=== PATIENT | female | born 1945 | race Caucasian/White ===

== ENCOUNTER → 2018-02-22 08:30 | Outpatient (CLI) | payer MEDICARE, SELFPAY ==
--- NOTE | 2018-02-22 08:32 | BI_ITS ---
MAMMOGRAPHY - UNILATERAL SCREENING: RIGHT BREAST REASON FOR EXAM: Female, 72 years old. Routine annual screening examination (unilateral). PERTINENT HISTORY: Personal history of breast cancer. Prior left mastectomy and chemotherapy. TECHNIQUE: Digital unilateral breast gianluca (3D mammographic acquisition) in the CC and MLO projections. 2-D mediolateral oblique (MLO) and craniocaudad (CC) views of both breasts were obtained. CAD: Full Field Digital Mammography with Computer Added Detection was performed. COMPARISON: Comparison is made with prior study dated February 19, 2017 and January 28, 2016. FINDINGS: Breast Composition: There are scattered areas of fibroglandular density. There are no dominant masses or suspicious calcifications. No other significant abnormalities are identified. There has been no significant change since the prior study. BI/UNILAT RT SCRN W/CAD IMPRESSION: Stable unilateral screening mammogram. Yearly follow-up mammogram recommended. (A) ASSESSMENT CATEGORY: BIRADS Category 1: Negative. A letter regarding these results will be sent to the patient by the facility within 30 days. Approximately 10% of breast cancers are not detected by mammography. A normal mammogram should not delay biopsy of a clinically suspicious abnormality. [id number] Electronically Signed: Jesus Faria MD at 10:42 EST Tel [phone], Service support ,
== END ==
PROVIDERS: Family Provider Preventive Medicine Occupational Medicine; PCP Preventive Medicine Occupational Medicine; Visit Provider Nurse Practitioner Women's Health
DX: Z12.31 Encounter for screening mammogram for malignant neoplasm of breast (principal); Z85.3 Personal history of malignant neoplasm of breast; Z90.12 Acquired absence of left breast and nipple
CPT/HCPCS: 77061; 77067; G0279

== ENCOUNTER → 2018-09-16 11:19 | Outpatient (CLI) | payer MEDICARE, SELFPAY ==
[2018-02-03 08:38] VITALS: BMI 35.2
[2018-09-16 12:48] LABS: Albumin, Serum 3.7 g/dL (3.2-5.0); BUN 34 mg/dL (7-18); BUN/Creat Ratio 16.1 RATIO (10-20); Calcium,Total 9.4 mg/dL (8.5-10.1); Chloride 109 mmol/L (98-107); Creatinine, Serum 2.11 mg/dL (0.55-1.02); EST Glomerular Filtration Rate 24 mL/min (>60); Est Glom Filt Rate - Afr Amer 30 mL/min (>60); Glucose 282 mg/dL (74-106); Phosphorus 3.3 mg/dL (2.5-4.9); Potassium 4.9 mmol/L (3.5-5.1); Sodium Level 139 mmol/L (136-145)
== END ==
PROVIDERS: Family Provider Preventive Medicine Occupational Medicine; PCP Preventive Medicine Occupational Medicine; Visit Provider Internal Medicine Nephrology
DX: N18.4 Chronic kidney disease, stage 4 (severe) (principal); N25.81 Secondary hyperparathyroidism of renal origin
CPT/HCPCS: 36415; 80069; 83970

== ENCOUNTER → 2019-02-24 08:07 | Outpatient (CLI) | payer MEDICARE, SELFPAY ==
[2019-02-07 08:34] VITALS: BMI 35.2
--- NOTE | 2019-02-24 08:09 | BI_ITS ---
MAMMOGRAPHY - UNILATERAL SCREENING: RIGHT BREAST REASON FOR EXAM: Female, 73 years old. Routine annual screening examination (unilateral). PERTINENT HISTORY: Personal history of breast cancer. Prior left mastectomy with chemotherapy. Sister with breast cancer. Mother with breast cancer. TECHNIQUE: Digital unilateral breast jessica (3D mammographic acquisition) in the CC and MLO projections. 2-D mediolateral oblique (MLO) and craniocaudad (CC) views of both breasts were obtained. CAD: Full Field Digital Mammography with Computer Added Detection was performed. COMPARISON: Comparison is made with prior examination dated February 22, 2018 and February 19, 2017. FINDINGS: Breast Composition: There are scattered areas of fibroglandular density. There are no dominant masses or suspicious calcifications. No other significant abnormalities are identified. There has been no significant change since the prior study. BI/SCREEN MAMM (CAD) W/JESSICA UNI R IMPRESSION: Stable unilateral screening mammogram. Yearly follow-up mammogram recommended. (A) ASSESSMENT CATEGORY: BIRADS Category 1: Negative. A letter regarding these results will be sent to the patient by the facility within 30 days. Approximately 10% of breast cancers are not detected by mammography. A normal mammogram should not delay biopsy of a clinically suspicious abnormality. [id number] Electronically Signed: Jesus Faria, at 10:05 EST , Service support ,
== END ==
PROVIDERS: Family Provider Preventive Medicine Occupational Medicine; PCP Preventive Medicine Occupational Medicine; Referring Provider Nurse Practitioner Women's Health; Visit Provider Nurse Practitioner Women's Health
DX: Z12.31 Encounter for screening mammogram for malignant neoplasm of breast (principal); Z80.3 Family history of malignant neoplasm of breast; Z85.3 Personal history of malignant neoplasm of breast; Z90.12 Acquired absence of left breast and nipple
CPT/HCPCS: 77061; 77067; G0279

== ENCOUNTER → 2020-03-06 08:07 | Outpatient (CLI) | payer MEDICARE, SELFPAY ==
[2020-02-09 08:08] VITALS: BMI 34.2
--- NOTE | 2020-03-06 08:09 | BI_ITS ---
MAMMOGRAPHY - BILATERAL SCREENING REASON FOR EXAM: Female, 74 years old. Routine annual screening examination. PERTINENT HISTORY: Personal history of breast cancer. Sister with breast cancer. Mother with breast cancer. Prior left mastectomy. TECHNIQUE: Digital bilateral breast jessica (3D mammographic acquisition) in the CC and MLO projections. 2-D mediolateral oblique (MLO) and craniocaudad (CC) views of both breasts were obtained. CAD: Full Field Digital Mammography with Computer Added Detection was performed. COMPARISON: Comparison is made with prior study dated 02/24/2019 and 02/22/2018. FINDINGS: Breast Composition: There are scattered areas of fibroglandular density. There are no dominant masses or suspicious calcifications. No other significant abnormalities are identified. There has been no significant change since the prior study. BI/SCREEN MAMM (CAD) W/JESSICA BILAT IMPRESSION: Stable bilateral screening mammogram. Yearly follow-up mammogram recommended. (A) ASSESSMENT CATEGORY: BIRADS Category 2: Benign. A letter regarding these results will be sent to the patient by the facility within 30 days. Approximately 10% of breast cancers are not detected by mammography. A normal mammogram should not delay biopsy of a clinically suspicious abnormality. [id number] Electronically Signed: Jesus Faria, at 10:17 EST , Service support ,
== END ==
PROVIDERS: PCP Preventive Medicine Occupational Medicine; Referring Provider Nurse Practitioner Women's Health; Visit Provider Nurse Practitioner Women's Health
DX: Z12.31 Encounter for screening mammogram for malignant neoplasm of breast (principal); Z80.3 Family history of malignant neoplasm of breast; Z90.12 Acquired absence of left breast and nipple; Z85.3 Personal history of malignant neoplasm of breast
CPT/HCPCS: 77063; 77067

== ENCOUNTER → 2020-07-31 12:14 | Outpatient (CLI) | payer MEDICARE, SELFPAY ==
[2020-02-09 08:08] VITALS: BMI 34.2
[2020-07-31 12:58] LABS: Microalbumin:Creatinine Ratio 10.2 mg/g CRE (<30 mg/g CRE)
== END ==
PROVIDERS: PCP Preventive Medicine Occupational Medicine; Visit Provider Internal Medicine Nephrology
DX: E11.22 Type 2 diabetes mellitus with diabetic chronic kidney disease (principal)
CPT/HCPCS: 82043; 82570

== ENCOUNTER → 2021-03-07 10:21 | Outpatient (CLI) | payer MEDICARE, SELFPAY ==
[2020-02-09 08:08] VITALS: BMI 34.2
--- NOTE | 2021-03-07 10:38 | BI_ITS ---
MAMMOGRAPHY - UNILATERAL SCREENING: RIGHT BREAST REASON FOR EXAM: Female, 75 years old. Routine annual screening examination (unilateral). PERTINENT HISTORY: Personal history of breast cancer. Prior left mastectomy. Sister with breast cancer. Mother with breast cancer. TECHNIQUE: Digital unilateral breast jessica (3D mammographic acquisition) in the CC and MLO projections. 2-D mediolateral oblique (MLO) and craniocaudad (CC) views of both breasts were obtained. CAD: Full Field Digital Mammography with Computer Added Detection was performed. COMPARISON: Comparison is made with prior study dated 03/06/2020 and 02/24/2019. FINDINGS: Breast Composition: There are scattered areas of fibroglandular density. There are no dominant masses or suspicious calcifications. No other significant abnormalities are identified. There has been no significant change since the prior study. BI/SCREEN MAMM (CAD) W/JESSICA UNI R IMPRESSION: Stable unilateral screening mammogram. Yearly follow-up mammogram recommended. (A) ASSESSMENT CATEGORY: BIRADS Category 1: Negative. A letter regarding these results will be sent to the patient by the facility within 30 days. Approximately 10% of breast cancers are not detected by mammography. A normal mammogram should not delay biopsy of a clinically suspicious abnormality. [id number] Electronically Signed: Jesus Faria MD at 11:03 EST , Service support ,
== END ==
PROVIDERS: PCP Preventive Medicine Occupational Medicine; Referring Provider Nurse Practitioner Women's Health; Visit Provider Nurse Practitioner Women's Health
DX: Z12.31 Encounter for screening mammogram for malignant neoplasm of breast (principal)
CPT/HCPCS: 77063; 77067

== ENCOUNTER → 2022-03-10 | Outpatient (CLI) | payer MEDICARE, SELFPAY ==
--- NOTE | 2022-03-10 13:25 | BI_ITS ---
MAMMOGRAPHY - UNILATERAL SCREENING: RIGHT BREAST REASON FOR EXAM: Female, 76 years old. Routine annual screening examination (unilateral). PERTINENT HISTORY: Personal history of breast cancer. Prior left breast mastectomy. Sister with breast cancer. Mother with breast cancer. TECHNIQUE: Digital unilateral breast jessica (3D mammographic acquisition) in the CC and MLO projections. 2-D mediolateral oblique (MLO) and craniocaudad (CC) views of both breasts were obtained. CAD: Full Field Digital Mammography with Computer Added Detection was performed. COMPARISON: Right breast mammogram from 03/07/2021, 03/06/2020. FINDINGS: Breast Composition: There are scattered areas of fibroglandular density. There are no dominant masses or suspicious calcifications. No other significant abnormalities are identified. There has been no significant change since the prior study. BI/SCREEN MAMM (CAD) W/JESSICA UNI R IMPRESSION: Stable unilateral screening mammogram. Yearly follow-up mammogram recommended. (A) ASSESSMENT CATEGORY: BIRADS Category 1: Negative. A letter regarding these results will be sent to the patient by the facility within 30 days. Approximately 10% of breast cancers are not detected by mammography. A normal mammogram should not delay biopsy of a clinically suspicious abnormality. Electronically Signed: Solitario Kaplan, at 11:56 EST ,
== END | disposition home or self-care (01) ==
LOC: OPBI 13:24
PROVIDERS: PCP Preventive Medicine Occupational Medicine; Visit Provider Nurse Practitioner Women's Health
DX: Z12.31 Encounter for screening mammogram for malignant neoplasm of breast (principal); Z80.3 Family history of malignant neoplasm of breast; Z90.12 Acquired absence of left breast and nipple
CPT/HCPCS: 77063; 77067

== ENCOUNTER → 2022-04-01 | Outpatient (CLI) | payer MEDICARE, SELFPAY ==
--- NOTE | 2022-04-01 09:04 | BD_ITS ---
STUDY: DUAL ENERGY X-RAY ABSORPTIOMETRY / DXA REASON FOR EXAM: Female, 76 years old. Postmenopausal TECHNIQUE: Bone Mineral Density (BMD) measurements of lumbar spine and bilateral hips were obtained. COMPARISON: Comparison is made with prior study dated 02/19/2017. FINDINGS: Lumbar Spine (L1-L4): g/cm2 (0.819) / T-score (-2.1) / Z-score (0.5) Findings are suggestive of osteopenia with a high fracture risk. Left Femur Total: g/cm2 (0.728) / T-score (-1.8) / Z-score (0.2) Left Femoral Neck: g/cm2 (0.551) / T-score (-2.7) / Z-score (-0.5) Right Femur Total: g/cm2 (0.709) / T-score (-1.9) / Z-score (0.0) Right Femoral Neck: g/cm2 (0.58) / T-score (-2.4) / Z-score (-0.2) The T-Scores on the most recent prior examination were: Lumbar Spine (L1-L4): There has been worsening of bone density since the previous examination. Left Femur Total: which represents a worsening of 9.5%. Right Femur Total: which represents a worsening of 7.9%. BD/Dexa Bone Density Study IMPRESSION: The patient is considered osteoporotic as outlined below according to World Jorge Organization (WHO) criteria with a high fracture risk. There has been worsening of bone density since the previous examination. Reference Information: The T-score is the number of standard deviations above or below the standard which is normal for young adults at their peak bone mineral density. The World Health Organization (WHO) interprets the T-scores as follows: Above -1 Normal bone density Between -1 and -2.5 Osteopenia Equal to / or below -2.5 Osteoporosis As a practical clinical guideline, osteopenia may be graded as follows: Mild -1 through -1.5 Moderate -1.6 through -2.0 Severe -2.1 through -2.4 The Z-score is the number of standard deviations above or below age-matched controls. A Z-score of less than -1.5 would be considered abnormal. References: 1. NIH Osteoporosis and Related Bone Diseases www osteo.org 2. International Society for Clinical Densitometry www iscd.org 3. National Osteoporosis Foundation www nof.org Electronically Signed: Jesus Faria MD at 11:18 EST ,
== END | disposition home or self-care (01) ==
LOC: OPBD 08:55
PROVIDERS: PCP Preventive Medicine Occupational Medicine; Referring Provider Nurse Practitioner Women's Health; Visit Provider Nurse Practitioner Women's Health
DX: Z78.0 Asymptomatic menopausal state (principal); M81.0 Age-related osteoporosis without current pathological fracture; M85.80 Other specified disorders of bone density and structure, unspecified site
CPT/HCPCS: 77080

== ENCOUNTER → 2022-06-03 | Outpatient (CLI) | payer MEDICARE, SELFPAY ==
[2022-06-03 11:59] LABS: Hematocrit 43.2 % (37-47); Hemoglobin 13.6 g/dL (12.0-15.0); Mean Corp Hgb Conc 31.5 g/dL (32-36); Mean Corpuscular Hgb 29.2 pg (27.0-32.0); Mean Corpuscular Volume 92.7 fL (81-99); Mean Platelet Vol. 11.1 fl (6.2-12.0); Platelet Count 258 K/mm3 (150-450); RBC Distribution Width CV 13.6 % (11.6-14.6); RBC Distribution Width SD 46.3 fl (35.1-43.9); Red Blood Count 4.66 M/mm3 (4.2-5.4); White Blood Count 6.3 K/mm3 (4.4-11.0)
[2022-06-03 12:16] LABS: PTHIN 112.8 pg/mL (18.4-80.1)
[2022-06-03 12:18] LABS: Albumin, Serum 3.6 g/dL (3.2-5.0); BUN 32 mg/dL (7-18); BUN/Creat Ratio 19.8 RATIO (10-20); Calcium,Total 9.4 mg/dL (8.5-10.1); Chloride 110 mmol/L (98-107); Creatinine, Serum 1.62 mg/dL (0.55-1.02); EST Glomerular Filtration Rate 33 mL/min (>60); Est Glom Filt Rate - Afr Amer 40 mL/min (>60); Glucose 162 mg/dL (74-106); Phosphorus 3.3 mg/dL (2.5-4.9); Potassium 4.6 mmol/L (3.5-5.1); Sodium Level 142 mmol/L (136-145)
== END | disposition home or self-care (01) ==
LOC: LAB 11:25
PROVIDERS: PCP Preventive Medicine Occupational Medicine; Referring Provider Internal Medicine Nephrology; Visit Provider Internal Medicine Nephrology
DX: N18.4 Chronic kidney disease, stage 4 (severe) (principal); N25.81 Secondary hyperparathyroidism of renal origin
CPT/HCPCS: 36415; 80069; 83970; 85027

== ENCOUNTER → 2022-12-30 | Outpatient (CLI) | payer MEDICARE, SELFPAY ==
[2022-12-30 10:27] LABS: Protein, Urine (Random) < 6.0 mg/dL (<11.9); Protein:Creat Ratio 60 mg/g CRE (0-200)
[2022-12-30 10:44] LABS: PTHIN 98.6 pg/mL (18.4-80.1)
[2022-12-30 10:57] LABS: Albumin, Serum 3.4 g/dL (3.2-5.0); BUN 26 mg/dL (7-18); BUN/Creat Ratio 15.6 RATIO (10-20); Calcium,Total 9.2 mg/dL (8.5-10.1); Chloride 111 mmol/L (98-107); Cholesterol 102 mg/dL (200); Creatinine, Serum 1.67 mg/dL (0.55-1.02); EST Glomerular Filtration Rate 32 mL/min (>60); Est Glom Filt Rate - Afr Amer 38 mL/min (>60); Glucose 147 mg/dL (74-106); High Density Lipoprotein 37 mg/dL; Phosphorus 3.3 mg/dL (2.5-4.9); Potassium 4.6 mmol/L (3.5-5.1); Sodium Level 140 mmol/L (136-145); Triglycerides 103 mg/dL; Very Low Density Lipoprotein 21 mg/dL (5-40)
== END | disposition home or self-care (01) ==
LOC: LAB 09:25
PROVIDERS: PCP Preventive Medicine Occupational Medicine; Referring Provider Internal Medicine Nephrology; Visit Provider Internal Medicine Nephrology
DX: N18.4 Chronic kidney disease, stage 4 (severe) (principal); E11.22 Type 2 diabetes mellitus with diabetic chronic kidney disease; N25.81 Secondary hyperparathyroidism of renal origin; E78.5 Hyperlipidemia, unspecified
CPT/HCPCS: 36415; 80061; 80069; 82570; 83970; 84156

== ENCOUNTER → 2023-03-25 | Outpatient (CLI) | payer MEDICARE, SELFPAY ==
--- NOTE | 2023-03-25 09:03 | BI_ITS ---
MAMMOGRAPHY - UNILATERAL SCREENING: RIGHT BREAST REASON FOR EXAM: Female, 77 years old. Routine annual screening examination (unilateral). PERTINENT HISTORY: Personal history of breast cancer. Prior left mastectomy. Sisters with breast cancer. Mother with breast cancer. TECHNIQUE: Digital unilateral breast jessica (3D mammographic acquisition) in the CC and MLO projections. 2-D mediolateral oblique (MLO) and craniocaudad (CC) views of both breasts were obtained. CAD: Full Field Digital Mammography with Computer Added Detection was performed. COMPARISON: Comparison is made with prior study dated March 10, 2022 and March 07, 2021. FINDINGS: Breast Composition: There are scattered areas of fibroglandular density. There are no dominant masses or suspicious calcifications. No other significant abnormalities are identified. There has been no significant change since the prior study. BI/SCREEN MAMM (CAD) W/JESSICA UNI R IMPRESSION: Stable unilateral screening mammogram. Yearly follow-up mammogram recommended. (A) ASSESSMENT CATEGORY: BIRADS Category 1: Negative. A letter regarding these results will be sent to the patient by the facility within 30 days. Approximately 10% of breast cancers are not detected by mammography. A normal mammogram should not delay biopsy of a clinically suspicious abnormality. [id number] Electronically Signed: Jesus Faria MD at 9:53 EST ,
== END | disposition home or self-care (01) ==
LOC: OPBI 09:02
PROVIDERS: PCP Preventive Medicine Occupational Medicine; Referring Provider Nurse Practitioner Women's Health; Visit Provider Nurse Practitioner Women's Health
DX: Z12.31 Encounter for screening mammogram for malignant neoplasm of breast (principal); C50.912 Malignant neoplasm of unspecified site of left female breast; Z80.3 Family history of malignant neoplasm of breast; Z90.12 Acquired absence of left breast and nipple
CPT/HCPCS: 77063; 77067

== ENCOUNTER → 2023-12-04 | Outpatient (CLI) | payer MEDICARE, SELFPAY ==
[2023-12-04 12:21] LABS: Absolute Lymphocyte Count 1.51 X10^3/uL (0.83-4.51); Absolute Neutrophil Count 3.4 X10^3/uL (2.0-7.7); Basophil# 0.04 X10^3/uL; Basophil% 0.7 % (0-1); Eosinophil# 0.31 X10^3/uL; Eosinophils% 5.5 % (0-5); Hematocrit 44.8 % (37-47); Hemoglobin 14.2 g/dL (12.0-15.0); Lymphocyte # 1.51 X10^3/ul (0.83-4.51); Lymphocyte % 26.6 % (19-41); Mean Corp Hgb Conc 31.7 g/dL (32-36); Mean Corpuscular Hgb 29.3 pg (27.0-32.0); Mean Corpuscular Volume 92.4 fL (81-99); Mean Platelet Vol. 11.9 fl (6.2-12.0); Monocyte# 0.44 X10^3/uL; Monocyte% 7.8 % (0-10); NRBC Flagged by Analyzer 0 % (0-5); Neutrophil # 3.36 X10^3/uL (2.7-7.7); Neutrophil % 59.2 % (47-70); Platelet Count 244 K/mm3 (150-450); RBC Distribution Width CV 13.5 % (11.6-14.6); RBC Distribution Width SD 45.7 fl (35.1-43.9); Red Blood Count 4.85 M/mm3 (4.2-5.4); White Blood Count 5.7 K/mm3 (4.4-11.0)
[2023-12-04 12:37] LABS: ALB/GLOB Ratio 1.1 RATIO (0.9-2.4); AST(SGOT) 12 U/L (15-37); Alanine Aminotransfer ALT/SGPT 23 U/L (13-56); Albumin, Serum 3.7 g/dL (3.2-5.0); Alkaline Phosphatase 77 U/L (45-117); Anion Gap 4 (5-15); BUN 34 mg/dL (7-18); BUN/Creat Ratio 20.6 RATIO (10-20); Calcium,Total 9.4 mg/dL (8.5-10.1); Chloride 110 mmol/L (98-107); Cholesterol 109 mg/dL (200); Creatinine, Serum 1.65 mg/dL (0.55-1.02); EST Glomerular Filtration Rate 32 mL/min (>60); Est Glom Filt Rate - Afr Amer 39 mL/min (>60); Globulin 3.5 g/dL (2.2-4.2); Glucose 144 mg/dL (74-106); High Density Lipoprotein 39 mg/dL; Potassium 4.6 mmol/L (3.5-5.1); Protein, Total 7.2 g/dL (6.4-8.2); Sodium Level 140 mmol/L (136-145); Triglycerides 91 mg/dL; Very Low Density Lipoprotein 18 mg/dL (5-40)
[2023-12-04 12:44] LABS: Hemoglobin A1c 7.1 % (3.8-5.6)
== END | disposition home or self-care (01) ==
LOC: MFPLAB 10:25
PROVIDERS: PCP Preventive Medicine Occupational Medicine; Visit Provider Family Medicine
DX: E78.5 Hyperlipidemia, unspecified (principal); E11.9 Type 2 diabetes mellitus without complications; I10 Essential (primary) hypertension; Z76.89 Persons encountering health services in other specified circumstances
CPT/HCPCS: 36415; 80053; 80061; 83036; 84443; 85025

== ENCOUNTER → 2023-12-24 | Outpatient (CLI) | payer MEDICARE, SELFPAY ==
[2023-12-24 11:40] LABS: Protein, Urine (Random) 14.8 mg/dL (<11.9); Protein:Creat Ratio 111 mg/g CRE (0-200)
[2023-12-24 11:45] LABS: Albumin, Serum 3.5 g/dL (3.2-5.0); BUN 31 mg/dL (7-18); BUN/Creat Ratio 18.9 RATIO (10-20); Chloride 113 mmol/L (98-107); Creatinine, Serum 1.64 mg/dL (0.55-1.02); EST Glomerular Filtration Rate 32 mL/min (>60); Est Glom Filt Rate - Afr Amer 39 mL/min (>60); Glucose 135 mg/dL (74-106); Phosphorus 3.2 mg/dL (2.5-4.9); Sodium Level 143 mmol/L (136-145)
== END | disposition home or self-care (01) ==
LOC: LAB 10:45
PROVIDERS: PCP Preventive Medicine Occupational Medicine; Referring Provider Internal Medicine Nephrology; Visit Provider Internal Medicine Nephrology
DX: E11.22 Type 2 diabetes mellitus with diabetic chronic kidney disease (principal); N18.32 Chronic kidney disease, stage 3b
CPT/HCPCS: 36415; 80069; 82570; 84156

== ENCOUNTER → 2024-03-28 | Outpatient (CLI) | payer MEDICARE, SELFPAY ==
--- NOTE | 2024-03-28 10:31 | BI_ITS ---
MAMMOGRAPHY - UNILATERAL SCREENING: RIGHT BREAST REASON FOR EXAM: Female, 78 years old. Routine annual screening examination (unilateral). PERTINENT HISTORY: Personal history of breast cancer. Prior right mastectomy. TECHNIQUE: Digital unilateral breast jessica (3D mammographic acquisition) in the CC and MLO projections. 2-D mediolateral oblique (MLO) and craniocaudad (CC) views of both breasts were obtained. CAD: Full Field Digital Mammography with Computer Added Detection was performed. COMPARISON: Comparison is made with prior study March 25, 2023 and March 10, 2022. FINDINGS: Breast Composition: There are scattered areas of fibroglandular density. There are no dominant masses or suspicious calcifications. No other significant abnormalities are identified. There has been no significant change since the prior study. BI/SCREEN MAMM (CAD) W/JESSICA UNI R IMPRESSION: Stable unilateral screening mammogram. Yearly follow-up mammogram recommended. (A) ASSESSMENT CATEGORY: BIRADS Category 1: Negative. A letter regarding these results will be sent to the patient by the facility within 30 days. Approximately 10% of breast cancers are not detected by mammography. A normal mammogram should not delay biopsy of a clinically suspicious abnormality. [id number] Electronically Signed: Jesus Faria MD at 11:14 EST ,
== END | disposition home or self-care (01) ==
PROVIDERS: PCP Preventive Medicine Occupational Medicine; Referring Provider Nurse Practitioner Women's Health; Visit Provider Nurse Practitioner Women's Health
DX: Z12.31 Encounter for screening mammogram for malignant neoplasm of breast (principal); Z85.3 Personal history of malignant neoplasm of breast
CPT/HCPCS: 77063; 77067

== ENCOUNTER → 2024-12-21 | Outpatient (CLI) | payer MEDICARE, SELFPAY ==
[2024-12-21 10:53] LABS: PTHIN 73 pg/mL (11-61)
[2024-12-21 11:25] LABS: Anion Gap 10 (5-15); BUN 27 mg/dL (4-19); BUN/Creat Ratio 16.0 RATIO (10-20); Calcium,Total 10.1 mg/dL (7.6-11.0); Carbon Dioxide 21.7 mmol/L (21.0-32.0); Chloride 110 mmol/L (98-108); Glucose 127 mg/dL (70-99); Potassium 5.2 mmol/L (3.3-5.1)
[2024-12-21 12:36] LABS: Albumin, Serum 4.1 g/dL (3.4-4.8); Anion Gap 12 (5-15); BUN 27 mg/dL (4-19); BUN/Creat Ratio 15.7 RATIO (10-20); Calcium,Total 9.9 mg/dL (7.6-11.0); Carbon Dioxide 20.2 mmol/L (21.0-32.0); Chloride 109 mmol/L (98-108); Glucose 126 mg/dL (70-99); Potassium 5.3 mmol/L (3.3-5.1)
== END | disposition home or self-care (01) ==
LOC: LAB 09:13
PROVIDERS: PCP Family Medicine; Referring Provider Internal Medicine Nephrology; Visit Provider Internal Medicine Nephrology
DX: E11.22 Type 2 diabetes mellitus with diabetic chronic kidney disease (principal); N18.32 Chronic kidney disease, stage 3b; N25.81 Secondary hyperparathyroidism of renal origin
CPT/HCPCS: 36415; 80048; 80069; 83970

== ENCOUNTER → 2025-02-17 | Outpatient (CLI) | payer MEDICARE, SELFPAY ==
[2025-02-17 17:36] LABS: Creatinine, Urine (random) 133.00 mg/dL (28.00-217.00); Microalbumin,Random Urine 18.1 mg/L (<20 mg/L)
== END | disposition home or self-care (01) ==
LOC: MFPLAB 10:24 → LABSPEC 10:28
PROVIDERS: PCP Family Medicine; Visit Provider Family Medicine
DX: E11.9 Type 2 diabetes mellitus without complications (principal)
CPT/HCPCS: 82043; 82570

== ENCOUNTER → 2025-03-29 | Outpatient (CLI) | payer MEDICARE, SELFPAY ==
--- NOTE | 2025-03-29 09:47 | BI_ITS ---
EXAM: SCREEN MAMM (CAD) W/JESSICA UNI R DATE: 03/29/2025 CLINICAL HISTORY: F, Age 79 y/o , HX OF BREAST CANCER Personal history of breast cancer. Prior left mastectomy. Mother with breast cancer. Sister with breast cancer. TECHNIQUE: Procedure Code: [id number] Modality: MG Procedure: SCREEN MAMM (CAD) W/JESSICA UNI R COMPARISON: Prior exam(s) dated March 28, 2024.. FINDINGS: TISSUE DENSITY: There are scattered areas of fibroglandular density. Bilateral Breast Mammographic Findings: No significant masses, calcifications or other abnormalities are identified. No suspicious masses, areas of developing architectural distortion, or suspicious calcifications. There has been no significant interval change. BI/SCREEN MAMM (CAD) W/JESSICA UNI R IMPRESSION: Stable unilateral mammogram. OVERALL FINAL ASSESSMENT BI-RADS 1: NEGATIVE. RECOMMENDATION: Routine annual follow-up in 1 Year Additional Recommendation none A letter with findings and recommendations will be mailed to the patient. Reading Location: [place] [id number]
--- OUTSIDE RECORDS SUMMARY | 2025-03-29 10:51 | XMS RPT_ITS | CCD ---
Author Organization [facility] Care Team Providers Care Library Consultant Name Role Phone Nathan KING, Neyda Chao Unavailable [phone] MELCHOR WILLIS DO Primary Care Physician Melchor Willis Primary Care Provider [id number] Dr. Talisha Andrade DO Attending Physician Dr. Talisha Andrade DO Referring Provider Torrey Nicolas MD Primary Care Physician Torrey Nicolas Attending Unavailable Torrey Nicolas Primary Care Unavailable Vale Miranda Attending Unavailable Melchor Willis Primary Care Unavailable Vale Miranda Referring Unavailable Talisha Andrade Referring Unavailable Talisha Andrade Attending Unavailable Torrey Nicolas Primary Care Unavailable Melchor Willis Referring Unavailable Melchor Willis Primary Care Unavailable Vale Miranda Attending Unavailable Allergies Allergy Classification Reported Allergen(s) Allergy Type Date of Onset Reaction(s) Facility (4 sources) Citric Acid; Translations: [citric acid] Drug Allergy 8 Unknown, fever blisters [facility] (1 source) Citric Acid Drug Allergy 4 [facility] Repository Medications Current Medications Medication Drug Class(es) Dates Sig (Normalized) Sig (Original) aspirin 81 mg delayed release oral tablet (5 sources) Nonsteroidal Anti-inflammatory Drug Start: 09-12-2020 Aspir-Low 81 mg oral delayed release tablet Dose : 81 mg = 1 tab(s), Oral, qDay, # 30 tab(s), 0 Refill(s) Start Date: 09/12/20 Status: Ordered Start: 02-02-2017 ASPIRIN 81 MG TABS as directed ASPIRIN [id number] Ashtyn Mckoy Start: 02-20-2014 take 1 tablet by benji th at bedtime Comment on above: Take 81 mg by mouth once daily. famotidine 40 mg oral tablet (3 sources) Histamine-2 Receptor Antagonist Start: 07-02-2021 famotidine 40 mg oral tablet Dose : 40 mg = 1 tab(s), Oral, qAM, # 90 tab(s), 3 Refill(s), Pharmacy: [facility], GERD without esophagitis, 162, cm, 06/07/21 13:14:00 EST, Height, kg, 06/07/21 13:14:00 EST, Dosing Weight Start Date: 07/02/21 Status: Ordered Start: 02-09-2020 take 1 tablet by mouth once da eliana lisinopril 30 mg oral tablet (3 sources) Angiotensin Converting Enzyme Inhibitor Start: 03-15-2024 take 1 tablet by mouth once daily Start: 02-20-2014 End: 09-26-2016 take 1 tablet by mouth at bedtime Lisinopril 2.5 MG tablet Discontinued 2.5 mg PO AT BEDTIME February 20, 2014 1:00am September 26, 2016 1:41pm metoprolol tartrate 100 mg oral tablet (5 sources) beta-Adrenergic Melba Start: 02-18-2021 Metopr olol Succinate ER 100 mg oral TABLET extended release Dose : 100 mg = 1 tab(s), Oral, qDay, # 90 tab(s), 3 Refill(s), Pharmacy: [facility], 162, cm, 12/03/20 13:31:00 EDT, Height, kg, 12/03/20 13:31:00 EDT, Dosing Weight Start Date: 02/18/21 Status: Ordered Start: 02-02-2017 METOPROLOL SUC CINATE ER 50 MG [id number] as directed METOPROLOL SUCCINATE [id number] Ashtyn Mckoy Start: 02-20-2014 End: 03-15-2024 take 1 tablet by mouth at bedtime Metoprolol Tartrate 50 MG tablet Discontinued 50 mg PO AT BEDTIME February 20, 2014 1:00am March 15, 2024 12:20pm take 100 mg by mouth once daily metoprolol succinate ER (TOPROL XL) 100 mg Tb24 Take 100 mg by mouth once daily. 0 Active Comment on above: Take 100 mg by mouth once daily. pioglitazone 15 mg oral tablet (2 sources) Peroxisome Proliferator Receptor alpha Agonist, Peroxisome Proliferator Receptor gamma Agonist, Thiazolidinedione Start: 03-10-2022 take 4 mg by mouth once daily Start: 03-10-2022 take 4 mg by mouth once daily Pioglitazone Active 4 MG PO DAILY March 10, 2022 1:00am simvastatin 40 mg oral tablet (5 sources) HMG-CoA Reductase Inhibitor Start: 01-20-2014 take 1 tablet by mouth at bedtime Comment on above: Take 40 mg by mouth daily at bedtime. Completed/Discontinued Medications Medication Drug Class(es) Dates Sig (Normalized) Sig (Original) anastrozole 1 mg oral tablet (5 sources) Aromatase Inhibitor Start: 09-23-2016 End: 02-09-2020 anastrozole (ARIMIDEX) 1 mg tablet TAKE 1 TABLET EVERY DAY 90 tablet 3 11/26/2020 Active Comment on above: TAKE 1 TABLET EVERY DAY calcitriol 0.90247 mg oral capsule (2 sources) Vitamin D3 Analog Start: 09-23-2016 End: 09-26-2016 take 2 capsules by mouth at bedtime Calcitriol 0.25 MCG capsule Discontinued 0.5 ug PO AT BEDTIME September 23, 2016 12:00am September 26, 2016 1:41pm Start: 09-23-2016 End: 09-26-2016 take 0.5 ug by mouth at bedtime Calcitriol Discontinue d 0.5 MCG PO AT BEDTIME September 23, 2016 12:00am September 26, 2016 1:41pm glimepiride 4 mg oral tablet (4 sources) Sulfonylurea Start: 02-09-2020 End: 03-10-2022 take 1 tablet by mouth twice daily Glimepiride 4 mg tablet Discontinued 4 mg PO TWICE A DAY February 09, 2020 12:00am March 10, 2022 3:01pm Start: 01-13-2017 take 1 tablet by benji th once daily glimepiride (AMARYL) 2 mg tablet Take 2 mg by mouth once daily. 0 01/13/2017 Active Comment on above: Take 2 mg by mouth o nce daily. 24 hr metFORMIN hydrochloride 500 mg extended release oral tablet (2 sources) Biguanide Start: 4 End: 7 take 2 tablets by mouth at bedtime Metformin 500 MG tablet Discontinued 1000 mg PO AT BEDTIME February 20, 2014 1:00am September 26, 2016 1:41pm Start: 02-20-2014 End: 09-26-2016 take 1000 mg by mouth at bedtime Metformin Discontinued 1000 MG PO AT BEDTIME February 20, 2014 1:00am September 26, 2016 1:41pm omeprazole 40 mg delayed release oral capsule (2 sources) Proton Pump Inhibitor Start: 09-23-2016 End: 02-07-2019 take 1 capsule by mouth once daily Omeprazole 40 MG capsule,delayed release(DR/EC) Discontinued 40 mg PO DAILY September 23, 2016 12:00am February 07, 2019 8:23am Problems Active Problems Problem Classification Problem Date Documented Date Episodic/Chronic Acute and unspecified renal failure (1 source) Chronic renal failure 05-10-2019 Chronic Acute and unspecified renal failure (2 sources) Acute renal failure syndrome; Translations: [Acute kidney failure, unspecified] 09-24-2016 Episodic Cancer of breast (6 sources) Malignant tumor of breast ; Translations: [Malignant neoplasm of unspecified site of unspecified female breast] Onset: 03-13-2014 03-13-2014 Chronic Comment on above: 2013 mastectomy, [place], no rad Chronic kidney disease (1 source) Chronic kidney disease; Translations: [Chronic kidney disease, stage 3b] Onset: 01-04-2025 Diabetes mellitus without complication (1 source) Diabetes mellitus 06-15-2019 Chronic Disorders of lipid metabolism (1 source) Hyperlipidemia 05-10-2019 Chronic Esophageal disorders (1 source) Gastroesophageal reflux disease without esophagitis 06-15-2019 Chronic Essential hypertension (1 source) Essential hypertension 05-10-2019 Chronic Nutritional deficiencies (1 source) Vitamin D deficiency; Translations: [Vitamin D deficiency, unspecified] Onset: 01-02-2015 01-02-2015 Chronic Osteoarthritis (1 source) Osteoarthritis of right knee joint 12-03-2020 Chronic Osteoporosis (1 source) Osteoporosis; Translations: [Age-related osteoporosis without current pathological fracture] Onset: 02-02-2017 02-02-2017 Chronic Other bone disease and musculoskeletal deformities (2 sources) Osteopenia; Translations: [Other specified disorders of bone density and structure, unspecified site] 02-07-2019 Episodic Other nervous system disorders (1 source) Neuropathy of upper limb; Translations: [Unspecified mononeuropathy of unspecified upper limb] Onset: 01-02-2015 01-02-2015 Chronic Other nutritional; endocrine; and metabolic disorders (2 sources) Hypercalcemia; Translations: [Hypercalcemia] 09-24-2016 Chronic Unclassified (1 source) Screening mammography ; Translations: [Encounter for screening mammogram for malignant neoplasm of breast] Onset: 02-02-2017 02-02-2017 Unclassified (1 source) Gynecologic examination ; Translations: [Encounter for gynecological examination (general) (routine) without abnormal findings] Onset: 02-02-2017 02-02-2017 Past or Other Problems Problem Classification Problem Date Documented Da te Episodic/Chronic Other and unspecified benign neoplasm (1 source) Benign neoplasm of colon; Translations: [Benign neoplasm of colon, unspecified] Onset: 03-26-2010 03-26-2010 Episodic Other bone disease and musculoskeletal deformities (1 source) Disorder of skeletal system; Translations: [Disorder of bone, unspecified] Onset: 10-18-2007 10-18-2007 Episodic Other bone disease and musculoskeletal deformities (1 source) Other specified disorders of bone density and structure, unspecified site; Translations: [Other specified disorders of bone density and structure, unspecified site] Onset: 03-15-2024 Episodic Other screening for suspected conditions (not mental disorders or infectious disease) (1 source) Encounter for screening mammogram for malignant neoplasm of breast; Translations: [Encounter for screening mammogram for malignant neoplasm of breast] Onset: 04-29-2024 Episodic Residual codes; unclassified (1 source) Estrogen receptor positive tumor; Translations: [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+]] Onset: 03-13-2014 03-13-2014 Episodic Results Test Name Value Interpretation Reference Range Facility Microalb:Creat Ratio,Random URon 02-17-2025 Creatinine [Mass/Vol] 133.00 mg/dL Normal 28.00-217.00 [facility] Comment on above: Performed By: #### L 502.0250 #### [facility] [address] [place], [place], [id number] MALB:CREAT 13.6 mg/g CRE Normal <30 mg/g CRE [facility] Comment on above: Performed By: #### L 502.0250 #### [facility] [address] [place], [place], [id number] [phone] MICROALBUMIN,UR 18.1 mg/L Normal <20 mg/L [facility] Comment on above: Performed By: #### L 502.0250 #### [facility] [address] [place] [place], [address] Anion gap in Serum or Plasma Ordered By: Torrey Nicolas on 12-21-2024 Anion gap [Moles/Vol] 10 mmol/L - [facility] BUN/creatinine ratioOrdered By: Torrey Nicolas on 12-21-2024 Urea nitrogen/Creatinine [Mass ratio] 16.0 mg/mg 02-06 [facility] Basic Metabolic Profile (BMP )on 12-21-2024 BUN/CRE 16.0 RATIO Normal 02-06 [facility] Comment on above: Order Comment: Order Date: 11/07/24 Order Info: 0667-1 - BMP Performed By: #### L 500.2500 #### [facility] [address] [place], [address] Calcium [Mass/Vol] 10.1 mg/dL Normal 7.6-11.0 [facility] Comment on above: Order Comment: Order Date: 11/07/24 Order Info: 0667-1 - BMP Performed By: #### L 500.2500 #### [facility] [address] [place], [address] Chloride [Moles/Vol] 110 mmol/L High 98-108 [facility] Comment on above: Order Comment: Order Date: 11/07/24 Order Info: 0667-1 - BMP Performed By: #### L 500.2500 #### [facility] [address] [place], [address] CO2 [Moles/Vol] 21.7 mmol/L Normal 21.0-32.0 [facility] Comment on above: Order Comment: Order Date: 11/07/24 Order Info: 0667-1 - BMP Performed By: #### L 500.2500 #### [facility] [address] [place], [address] Creatinine [Mass/Vol] 1.68 mg/dL High 0.70-1.20 [facility] Comment on above: Order Comment: Order Date: 11/07/24 Order Info: 666-04 - BMP Performed By: #### L 500.2500 #### [facility] [address] [place], [address] GAP 10 Normal 5-15 [facility] Comment on above: Order Comment: Order Date: 11/07/24 Order Info: 666-04 - BMP Performed By: #### L 500.2500 #### [facility] [address] [place], [address] GFR/1.73 sq M.predicted among non-blacks MDRD (S/P/Bld) [Vol rate/Area] 31 mL/min/{1.73_m2} Low >60 [facility] Comment on above: Order Comment: Order Date: 11/07/24 Order Info: 666-04 - BMP Result Comment: mL/m in/1.73m2 CKD-EPI Creatinine Equation (2020) Performed By: #### L 500.2500 #### [facility] [address] [place], [address] Glucose [Mass/Vol] 127 mg/dL High 70-99 [facility] Comment on above: Order Comment: Order Date: 11/07/24 Order Info: 666-04 - BMP Performed By: #### L 500.2500 #### [facility] [address] [place], [address] Potassium [Moles/Vol] 5.2 mmol/L High 3.3-5.1 [facility] Comment on above: Order Comment: Order Date: 11/07/24 Order Info: 666-04 - BMP Performed By: #### L 500.2500 #### [facility] [address] [place], [place], [address] Sodium [Moles/Vol] 141 mmol/L Normal 133-145 [facility] Comment on above: Order Comment: Order Date: 11/07/24 Order Info: 0667-1 - BMP Performed By: #### L 500.2500 #### [facility] [address] [place], [place], [address] Urea nitrogen [Mass/Vol] 27 mg/dL High 4-19 [facility] Comment on above: Order Comment: Order Date: 11/07/24 Order Info: 0667-1 - BMP Performed By: #### L 500.2500 #### [facility] [address] [place], [place], [address] Carbon dioxide, total [Moles /volume] in Central venous bloodOrdered By: Torrey Nicolas on 12-21-2024 CO2 [Moles/Vol] 21.7 mmol/L 21.0-32.0 [facility] Chloride assayOrdered By: Albert Nicolas on 12-21-2024 Chloride [Moles/Vol] 110 mmol/L High 98-108 [facility] Glomerular filtration rate ( GFR) estimation/1.73 sq m using serum, plasma, or whole bOrdered By: Torrey Nicolas on 12-21-2024 GFR/1.73 sq M.predicted among non-blacks MDRD (S/P/Bld) [Vol rate/Area] 31 mL/min/{1.73_m2} Low >60 [facility] Comment on above: mL/min/1.73m2 CKD-EP I Creatinine Equation (2020) PTHINon 12-21-2024 PTH 73 pg/mL High 11-61 [facility] Comment on above: Performed By: #### L 500.3600, L509.1000 #### [facility] [address] [place], [address] Potassium measurement (mass/ volume)Ordered By: Torrey Nicolas on 12-21-2024 Potassium (Unsp spec) [Mass/Vol] 5.2 mmol/L High 3.3-5.1 [facility] Renal Profileon 12-21-2024 Albumin [Mass/Vol] 4.1 g/dL Normal 3.4-4.8 [facility] Comment on above: Performed By: #### L 500.3600, L509.1000 #### [facility] [address] [place], [address] BUN/CRE 15.7 RATIO Normal 10-20 [facility] Comment on above: Performed By: #### L 500.3600, L509.1000 #### [facility] [address] [place], [address] Calcium [Mass/Vol] 9.9 mg/dL Normal 7.6-11.0 [facility] Comment on above: Performed By: #### L 500.3600, L509.1000 #### [facility] [address] [place], [address] Chloride [Moles/Vol] 109 mmol/L High 98-108 [facility] Comment on above: Performed By: #### L 500.3600, L509.1000 #### [facility] [address] [place], [address] CO2 [Moles/Vol] 20.2 mmol/L Low 21.0-32.0 [facility] Comment on above: Performed By: #### L 500.3600, L509.1000 #### [facility] [address] [place], [address] Creatinine [Mass/Vol] 1.71 mg/dL High 0.70-1.20 [facility] Comment on above: Performed By: #### L 500.3600, L509.1000 #### [facility] [address] [place], [address] GAP 12 Normal 5-15 [facility] Comment on above: Performed By: #### L 500.3600, L509.1000 #### [facility] [address] [place], [address] GFR/1.73 sq M.predicted among non-blacks MDRD (S/P/Bld) [Vol rate/Area] 30 mL/min/{1.73_m2} Low >60 [facility] Comment on above: Result Comment: mL/m in/1.73m2 CKD-EPI Creatinine Equation (2020) Performed By: #### L 500.3600, L509.1000 #### [facility] [address] [place], [address] Glucose [Mass/Vol] 126 mg/dL High 70-99 [facility] Comment on above: Performed By: #### L 500.3600, L509.1000 #### [facility] [address] [place], [address] Phosphate [Mass/Vol] 3.3 mg/dL Normal 2.7-4.5 [facility] Comment on above: Performed By: #### L 500.3600, L509.1000 #### [facility] [address] [place], [address] Potassium [Moles/Vol] 5.3 mmol/L High 3.3-5.1 [facility] Comment on above: Performed By: #### L 500.3600, L509.1000 #### [facility] [address] [place], [address] Sodium [Moles/Vol] 141 mmol/L Normal 133-145 [facility] Comment on above: Performed By: #### L 500.3600, L509.1000 #### [facility] [address] [place], [address] Urea nitrogen [Mass/Vol] 27 mg/dL High 4-19 [facility] Comment on above: Performed By: #### L 500.3600, L509.1000 #### [facility] [address] [place], [address] Serum creatinine measurement (mass/volume)Ordered By: Torrey Nicolas on 12-21-2024 Creatinine [Mass/Vol] 1.68 mg/dL High 0.70-1.20 [facility] Serum glucose measurement (m ass/volume)Ordered By: Torrey Nicolas on 12-21-2024 Glucose [Mass/Vol] 127 mg/dL High 70-99 [facility] Serum or plasma albumin maddison urement (mass/volume)Ordered By: Talisha Andrade on 12-21-2024 Albumin [Mass/Vol] 4.1 g/dL 3.4-4.8 [facility] Serum or plasma calcium maddison urement (mass/volume)Ordered By: Torrey Nicolas on 12-21-2024 Calcium [Mass/Vol] 10.1 mg/dL 7.6-11.0 [facility] Serum or plasma urea nitroge n measurement (mass/volume)Ordered By: Torrey Nicolas on 12-21-2024 Urea nitrogen [Mass/Vol] 27 mg/dL High 4-19 [facility] Sodium levelOrdered By: Akin Nicolas on 12-21-2024 Sodium [Moles/Vol] 141 mmol/L 133-145 [facility] SCREEN MAMM (CAD) W/JESSICA [facility] Nigel 03-28-2024 [facility]) [facility] Imaging Services [address] [place], [place] [id number] [facility] (CAD) [facility] MR#: [id number] Acct: [id number] Name: DOMINIKBANDAR FERGUSON Willow Rep #: [id number] : 1945 F 78 From: Jesus mora MD PCP: Dr. 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 Routine annual screening examination (unilateral). PERTINENT HISTORY: Personal history of breast cancer. Prior right mastectomy. TECHNIQUE: Digital unilateral breast jessica (3D mammographic acquisition) in the CC and MLO projections. 2-D mediolateral oblique (MLO) and craniocaudad (CC) views of both breasts were obtained. CAD: Full Field Digital Mammography with Computer Added Detection was performed. COMPARISON: Comparison is made with prior study March 25, 2023 and March 10, 2022. FINDINGS: Breast Composition: There are scattered areas of fibroglandular density. There are no dominant masses or suspicious calcifications. No other significant abnormalities are identified. There has been no significant change since the prior study. BI/SCREEN MAMM (CAD) W/JESSICA UNI R IMPRESSION: Stable unilateral screening mammogram. Yearly follow-up mammogram recommended. (A) ASSESSMENT CATEGORY: BIRADS Category 1: Negative. A letter regarding these results will be sent to the patient by the facility within 30 days. Approximately 10% of breast cancers are not detected by mammography. A normal mammogram should not delay biopsy of a clinically suspicious abnormality. [id number] Electronically Signed: Jesus Faria MD at 11:14 EST , CC: KEESHA Miranda; Dr. Melchor Willis DO Marketing Proposal Specialist: Signed Normal [facility] Senior Buyer Planner Office Visit Reporton 03-15-2024 Senior Buyer Planner Office Visit Report [facility] [address], [address] [place] [address] OFFICE VISIT Date of Service: 03/15/24 MR#: [id number] Acct: [id number] Name: BANDAR HAUSER Rep #: [id number] : 1945 Provider: KEESHA damico Age/Sex: 78/F Location: [facility] Status: Signed Intake Vital Signs 03/11/23 09:30 03/15/24 11:14 03/15/24 11:21 Height 5 ft 4 in 5 ft 4 in 5 ft 4 in Weight: 207 lb 4 oz BMI 35.5 BP 134/72 H 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) Chief Complaint: Annual Senior Examiner Required: No Is patient in pain?: No Allergies citric acid Adverse Reaction (Verified 03/15/24 11:13) fever blisters Medications ???Medication ???Instructions ???Recorded ???Confirmed ???Type aspirin 81 mg chewable tablet 81 mg PO QHS 02/20/14 03/15/24 History simvastatin 40 mg tablet 40 mg PO QHS 02/20/14 03/15/24 History famotidine 10 mg tablet (Acid 10 mg PO DAILY 02/09/20 03/15/24 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 Research Asst (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)) pioglitazone 15 mg tablet 4 mg PO DAILY 03/10/22 03/15/24 History lisinopril 30 mg tablet 30 mg PO QDAY 03/15/24 03/15/24 History Is last menstrual period known: No Post menopausal: Yes Patient : No : No PFSH Medical History History of breast cancer in female Acute kidney failure Diabetes mellitus Surgical History Cholecystectomy planned H/O left mastectomy Social History number of children: 2 current occupational status: retired Smoking Status: Never smoker substance use type: does not use caffeine: No what type of physical activity do you participate in: none seatbelt use: always do you feel safe at home: Yes 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 Date Name GA/Weeks Outcome Route Bth Weight Infant Gen Labor Lgth Anesthesia Del Locatn Provider FOB Unknown Niko 1970 Unknown Rosanna 1973 HPI Encounter for routine gynecological examination Details: BANDAR HAUSER is a 78 year old who presents for annual exam. Denies concerns Last PAP: NA History of abnormal PAP: no Last mammogram: 03/2023 History of abnormal mammogram: L breast CA 2013 Colon cancer screening: thinks up to date Other preventative health care screenings: Maria Isabel Female Reproductive History Questions: metorrhagia: No and sexually active: No ROS Const Constitutional: Denies fatigue, weight gain or weight loss Cardio Card: Denies chest pain Resp Resp: Denies cough or dyspnea on exertion GI GI: Denies abdominal pain, bloating, change in stool character, constipation or vomiting : Reports as per HPI; Denies difficulty voiding, pelvic pain, urinary frequency, urinary incontinence, urinary urgency, vaginal discharge or vaginal pruritus Exam Const General: cooperative, healthy appearing, no acute distress and well developed Orientation: alert, oriented to person and oriented to place HENMT Head: normal to inspection Neck Neck: normal visual inspection Thyroid: thyroid normal Lymphatic: no lymphadenopathy noted Chest Breast inspection: normal inspection of the breasts and normal inspection of the axillae Breast palpation: normal palpation of the breasts, normal palpation of the axillae and no axillary lymphadenopathy Resp Effort Inspection: normal respiratory effort GI Palpation: soft, no masses and nontender Rectal Exam: deferred External Female Exam: normal external appearance and normal appearance of the urethra Urethra: normal appearance of the urethra and normal palpation Speculum Exam - Vagina: normal appearance of the vagina and normal vaginal discharge Speculum Exam - Cervix: normal appearance of the cervix Bimanual Exam- Vagina Uterus: normal bimanual exam, uterine size normal, uterine shape normal and non-tender Bimanual Exam- Adnexa, other: normal adnexae, no masses, normal and non-tender Pelvic Support: normal Neuro General: patient alert and patient oriented x3 Psych Affect: normal affect Coding Level of Care Code Pelvic/Breast Diagnoses Encounter for gynecological examination with abnormal finding Z01.411 Gynecological examination findings: abnormal findings PRESENT Osteopenia, unspecified location M85.80 Osteopenia location: unspecified Malignant neoplasm of left female breast, unspecified estrogen receptor status, unspecified site of breast C50.912 Breast location: unspecified site of breast Estrogen receptor status: u (more content not included)... Normal [facility] Basophil percentageOrdered B y: Talisha Raymond on 12-30-2022 Basophil percentage 3.3 mg/dL 2.5-4.9 [facility] Chloride [Moles/Vol] 111 mmol/L 98-107 [facility] Cholesterol [Mass/Vol] 102 mg/dL <200 [facility] [place] Comment on above: <200 mg/dL Desirable 200-240 mg/dL Borderline >240 mg/dL High Risk Glucose [Mass/Vol] 147 mg/dL 74-106 [facility] Comment on above: Fasting Glucose resu lt greater than or equal to 126 mg/dL suggests DIABETES MELLITUS per A.D.A. criteria. Potassium [Moles/Vol] 4.6 mmol/L 3.5-5.1 [facility] Sodium [Moles/Vol] 140 mmol/L 136-145 [facility] Triglyceride [Mass/Vol] 103 mg/dL <199 [facility] [place] Comment on above: The drugs N-Acetylcy steine and Metamizole may falsely depress this assay.Serum Triglycerides Reference Interval Normal <150 mg/dL Borderline high 150 - 199 mg/dL High 200 - 499 mg/dL Very High > or = 500 mg/dL Laboratory - Chemistry and C hemistry - challengeOrdered By: Talisha Andrade on 12-30-2022 CO2 [Moles/Vol] 26.0 mmol/L 21.0-32.0 [facility] [place] Urea nitrogen/Creatinine [Mass ratio] 15.6 mg/mg 10-20 [facility] [place] No Panel InformationOrdered By: Talisha Andrade on 12-30-2022 Estimated GFR (MDRD) Amer 38 mL/min >60 [facility] [place] Comment on above: GFR Calc Estimated GFR (MDRD) Non-Af Amer 32 mL/min >60 [facility] [place] Comment on above: Non- GFR Calc Parathyroid Hormone (Intact) 98.6 pg/mL 18.4-80.1 [facility] [place] Serum or plasma albumin maddison urement (mass/volume)Ordered By: Talisha Andrade on 12-30-2022 Albumin [Mass/Vol] 3.4 g/dL 3.2-5.0 [facility] Serum or plasma calcium maddison urement (mass/volume)Ordered By: Talisha Andrade on 12-30-2022 Calcium [Mass/Vol] 9.2 mg/dL 8.5-10.1 [facility] Serum or plasma cholesterol in HDL measurement (mass/volume)Ordered By: Talisha Andrade on 12-30-2022 Cholesterol in HDL [Mass/Vol] 37 mg/dL >40 [facility] [place] Comment on above: The drugs N-Acetylcy steine and Metamizole may falsely depress this assay. Reference Range HDL <40 mg/dL Low HDL Cholesterol HDL >or= 60 mg/dL High HDL Cholesterol Serum or plasma cholesterol in VLDL measurement (mass/volume)Ordered By: Talisha Andrade on 12-30-2022 Cholesterol in VLDL [Mass/Vol] 21 mg/dL 5-40 [facility] [place] Serum or plasma creatinine m easurement (mass/volume)Ordered By: Talisha Andrade on 12-30-2022 Creatinine [Mass/Vol] 1.67 mg/dL 0.55-1.02 [facility] Comment on above: The validity of the calculated GFR & GFRAA in patients over 70 years has not been determined. Clinical correlation is essential. Serum or plasma low density lipoprotein (LDL) cholesterol measurement (mass/volume)Ordered By: Talisha Andrade on 12-30-2022 Cholesterol in LDL [Mass/Vol] 44 mg/dL 0-130 [facility] [place] Serum or plasma urea nitroge n measurement (mass/volume)Ordered By: Talisha Andrade on 12-30-2022 Urea nitrogen [Mass/Vol] 26 mg/dL 7-18 [facility] [place] Urine creatinine measurement (mass/volume)Ordered By: Talisha Andrade on 12-30-2022 Creatinine (U) [Mass/Vol] 93.70 mg/dL NO RANGE EST. [facility] [place] Urine protein measurement (m ass/volume)Ordered By: Talisha Andrade on 12-30-2022 Protein (U) [Mass/Vol] mg/dL 0.0-11.8 [facility] [place] Urine protein/creatinine mas s ratioOrdered By: Talisha Andrade on 12-30-2022 Protein/Creatinine (U) [Mass ratio] 60 mg/g CRE 0-200 [facility] [place] A1Con 12-12-2021 HbA1c (Bld) [Mass fraction] 8.1 % High 4.3-6.4 [facility] ([place]) Comment on above: Performed By: #### A 1C #### [address] [place], [place] [address] LABORATORYOrdered By: Corine Lopez on 12-12-2021 HbA1c (Bld) [Mass fraction] 8.1 % Invalid Interpretation Code 4.3 - 6.4 % AO ADM SS PTH-Intact SerPl-ncon 06- Parathyrin.intact [Mass/Vol] 59 pg/mL Normal 15-65 [facility] Comment on above: Order Comment: Speci men Type: BLOOD SPECIMEN Ordering Facility: [facility] Address: [address] [place] [address] Performed By: #### 2 731-8, 95703-9 #### [facility] CLIA [id number] [address] [place] [address] [place] Renal function 2000 panelon 10-08-2021 Albumin [Mass/Vol] 4.4 g/dL Normal 3.9-4.9 [facility] Comment on above: Order Comment: Speci men Type: BLOOD SPECIMEN Ordering Facility: [facility] Address: [address] [place] [address] Performed By: #### 2 731-8, 50307-2 #### [facility] CLIA [id number] [address] [place] [address] [place] Anion gap [Moles/Vol] 14 mmol/L Normal 9-18 [facility] Comment on above: Order Comment: Speci men Type: BLOOD SPECIMEN [facility] Address: [address] [place] [address] Performed By: #### 2 731-8, 53032-9 #### [facility] CLIA [id number] [address] [place] [address] [place] Calcium [Mass/Vol] 10.5 mg/dL High 8.5-10.2 [facility] Comment on above: Order Comment: Speci men Type: BLOOD SPECIMEN Ordering Facility: [facility] Address: [address] [place] [address] Performed By: #### 2 731-8, 89447-9 #### [facility] CLIA [id number] [address] [place] [address] [place] Chloride [Moles/Vol] 104 mmol/L Normal 97-105 [facility] Comment on above: Order Comment: Speci men Type: BLOOD SPECIMEN [facility] Address: [address] [place] [address] Performed By: #### 2 731-8, 86183-8 #### [facility] CLIA [id number] [address] [place] [address] [place] CO2 [Moles/Vol] 23 mmol/L Normal 22-30 [facility] Comment on above: Order Comment: Speci men Type: BLOOD SPECIMEN [facility] Address: [facility] [place] [address] Performed By: #### 2 731-8, 02849-2 #### [facility] CLIA [id number] [address] [place] [address] [place] Creatinine [Mass/Vol] 1.70 mg/dL High 0.58-0.96 [facility] Comment on above: Order Comment: Speci men Type: BLOOD SPECIMEN [facility] Address: [facility] [place] [address] Performed By: #### 2 731-8, 77588-6 #### [facility] CLIA [id number] [address] [place] [id number] [place] ESTIMATED GLOMERULAR FILTRATION RATE 31 mL/min/1.73m??? Low >=60 [facility] Comment on above: Order Comment: Speci men Type: BLOOD SPECIMEN Ordering Facility: [facility] Address: [facility] [place] [address] Result Comment: Aileen mated Glomerular Filtration Rate (eGFR) is calculated using the 2020 CKD-EPI creatinine equation. This equation utilizes serum creatinine, sex, and age as parameters. The creatinine assay has traceable calibration to isotope dilution-mass spectrometry. Refer to KDIGO guidelines for clinical interpretation. In patients with unstable renal function, e.g. those with acute kidney injury, the eGFR may not accurately reflect actual GFR. Performed By: #### 2 731-8, 50270-5 #### [facility] CLIA [id number] [address] [address] [place] Glucose [Mass/Vol] 171 mg/dL High 74-99 [facility] Comment on above: Order Comment: Elizabeth colbert Type: BLOOD SPECIMEN [facility] Address: [address] [place] [address] Result Comment: The [place] Diabetes Association (ADA) provides guidance for cutoff values for fasting glucose and random glucose. The ADA defines fasting as no caloric intake for at least 8 hours. Fasting plasma glucose results between 100 to 125 mg/dL indicate increased risk for diabetes (prediabetes). Fasting plasma glucose results greater than or equal to 126 mg/dL meet the criteria for diagnosis of diabetes. In the absence of unequivocal hyperglycemia, results should be confirmed by repeat testing. In a patient with classic symptoms of hyperglycemia or hyperglycemic crisis, random plasma glucose results greater than or equal to 200 mg/dL meet the criteria for diagnosis of diabetes. Reference: Standards of Medical Care in Diabetes 2016, [place] [employer] Association. Diabetes Care. 2016.39(Suppl 1). Performed By: #### 2 731-8, 48428-3 #### [facility] CLIA [id number] [address] [address] [place] Phosphate [Mass/Vol] 4.3 mg/dL Normal 2.7-4.8 [facility] Comment on above: Order Comment: Elizabeth colbert Type: BLOOD SPECIMEN [facility] Address: [address] [place] [address] Performed By: #### 2 731-8, 50626-8 #### [facility] CLIA [id number] [address] [address] [place] Potassium [Moles/Vol] 5.0 mmol/L Normal 3.7-5.1 [facility] Comment on above: Order Comment: Speci men Type: BLOOD SPECIMEN Ordering Facility: [facility] Address: [facility] [place] [address] Performed By: #### 2 731-8, 43908-4 #### [facility] CLIA [id number] [address] [place] [address] [place] Sodium [Moles/Vol] 141 mmol/L Normal 136-144 [facility] Comment on above: Order Comment: Speci men Type: BLOOD SPECIMEN Ordering Facility: [facility] Address: [facility] [place] [address] Performed By: #### 2 731-8, 14676-4 #### [facility] CLIA [id number] [address] [place] [address] [place] Urea nitrogen [Mass/Vol] 31 mg/dL High 7-21 [facility] Comment on above: Order Comment: Speci men Type: BLOOD SPECIMEN Ordering Facility: [facility] Address: [facility] [place] [address] Performed By: #### 2 731-8, 77115-0 #### [facility] CLIA [id number] [address] [place] [address] [place] .GFRon 06-07-2021 GFR 36 ml/min/1.73sqm Normal [facility] ([place]) Comment on above: Result Comment: GFR Population mean for , Non- Americans Ages 20-29 = 116 mL/min/1.73 sq.m. Ages 30-39 = 107 mL/min/1.73 sq.m. Ages 40-49 = 99 mL/min/1.73 sq.m. Ages 50-59 = 93 mL/min/1.73 sq.m. Ages 60-69 = 85 mL/min/1.73 sq.m. Ages 70+ = 75 mL/min/1.73 sq.m. Chronic Kidney Disease: Less than 60 mL/min/1.73 square meters End Stage Renal Disease: Less than 15 mL/min/1.73 square meters Performed By: #### L IPID, CMP, GFR #### [place] [place], [place] [address] GFR Non- 30 ml/min/1.73sqm Normal [facility] ([place]) Comment on above: Result Comment: GFR Population mean for , Non- Americans Ages 20-29 = 116 mL/min/1.73 sq.m. Ages 30-39 = 107 mL/min/1.73 sq.m. Ages 40-49 = 99 mL/min/1.73 sq.m. Ages 50-59 = 93 mL/min/1.73 sq.m. Ages 60-69 = 85 mL/min/1.73 sq.m. Ages 70+ = 75 mL/min/1.73 sq.m. Chronic Kidney Disease: Less than 60 mL/min/1.73 square meters End Stage Renal Disease: Less than 15 mL/min/1.73 square meters Performed By: #### L IPID, CMP, GFR #### [address] [address] CMPon 06-07-2021 Albumin Level 4.1 G/dL Normal 3.4-4.8 [facility] ([place]) Comment on above: Performed By: #### L IPID, CMP, GFR #### [address] [address] Albumin/Globulin [Mass ratio] 1.2 {ratio} Normal 1.1-2.5 [facility] ([place]) Comment on above: Performed By: #### L IPID, CMP, GFR #### [address] [address] ALP [Catalytic activity/Vol] 107 U/L Normal 40-135 [facility] ([place]) Comment on above: Performed By: #### L IPID, CMP, GFR #### [address] [address] ALT [Catalytic activity/Vol] 26 U/L Normal 14-59 [facility] ([place]) Comment on above: Performed By: #### L IPID, CMP, GFR #### [address] [address] AST [Catalytic activity/Vol] 16 U/L Normal 10-40 [facility] ([place]) Comment on above: Performed By: #### L IPID, CMP, GFR #### [address] [address] Bili Total 0.6 mg/dL Normal 0.2-1.0 [facility] ([place]) Comment on above: Result Comment: Use of this assay is not recommended for patients undergoing treatment with eltrombopag due to the potential for falsely elevated results. Performed By: #### L IPID, CMP, GFR #### [address] [address] BUN/Creatinine Ratio 18 ratio Normal 7-27 [facility] ([place]) Comment on above: Performed By: #### L IPID, CMP, GFR #### [address] [address] Calcium [Mass/Vol] 9.7 mg/dL Normal 8.4-10.2 [facility] ([place]) Comment on above: Performed By: #### L IPID, CMP, GFR #### [address] [address] Chloride [Moles/Vol] 108 mmol/L High 98-107 [facility] ([place]) Comment on above: Performed By: #### L IPID, CMP, GFR #### [address] [address] CO2 [Moles/Vol] 28 mmol/L Normal 23-31 [facility] ([place]) Comment on above: Performed By: #### L IPID, CMP, GFR #### [address] [address] Creatinine [Mass/Vol] 1.68 mg/dL High 0.55-1.02 Count includes the [facility] ([place]) Comment on above: Performed By: #### L IPID, CMP, GFR #### [address] [address] Electrolyte Balance 5.0 mEq/L Normal 4.0-15.0 [facility] ([place]) Comment on above: Performed By: #### L IPID, CMP, GFR #### [address] [address] Globulin 3.3 G/dL Normal [facility] ([place]) Comment on above: Performed By: #### L IPID, CMP, GFR #### [address] [address] Glucose [Mass/Vol] 154 mg/dL High 83-110 [facility] ([place]) Comment on above: Performed By: #### L IPID, CMP, GFR #### [address] [address] Potassium [Moles/Vol] 5.0 mmol/L Normal 3.5-5.1 Count includes the [facility] ([place]) Comment on above: Performed By: #### L IPID, CMP, GFR #### [address] [address] Sodium [Moles/Vol] 141 mmol/L Normal 136-145 [facility] ([place]) Comment on above: Performed By: #### L IPID, CMP, GFR #### [address] [address] Total Protein 7.4 G/dL Normal 6.4-8.2 [facility] ([place]) Comment on above: Performed By: #### L IPID, CMP, GFR #### [address] [address] Urea nitrogen [Mass/Vol] 30 mg/dL High 7-18 [facility] ([place]) Comment on above: Performed By: #### L IPID, CMP, GFR #### [address] [address] LIPIDon 06-07-2021 Cholesterol [Mass/Vol] 130 mg/dL Normal 0-200 [facility] ([place]) Comment on above: Result Comment: Chol esterol Reference Interval: Less than 200 Desirable 200-239 Borderline high risk 240 and above High risk Performed By: #### L IPID, CMP, GFR #### [address] [address] Cholesterol in HDL [Mass/Vol] 42 mg/dL Normal 40-60 [facility] ([place]) Comment on above: Performed By: #### L IPID, CMP, GFR #### [address] [address] Cholesterol in LDL [Mass/Vol] 66 mg/dL Normal 0-130 [facility] ([place]) Comment on above: Performed By: #### L IPID, CMP, GFR #### [address] [address] Triglyceride [Mass/Vol] 109 mg/dL Normal 0-150 [facility] ([place]) Comment on above: Result Comment: Trig lyceride Reference Interval: Less than 150 Normal 150-199 Borderline high risk 200-499 High risk 500 or higher Very high risk Performed By: #### L IPID, CMP, GFR #### [address] [address] MALBRon 06-07-2021 U Creatinine 138.6 mg/dL High 28.0-117.0 [facility] ([place]) Comment on above: Performed By: #### M ALBR #### [address] [address] U Microalb 1126 mcg/dL Normal [facility] ([place]) Comment on above: Performed By: #### M ALBR #### Denys [address] [address] U Ratio Alb/Cre 8 mcg/mg Normal 0-30 [facility] ([place]) Comment on above: Performed By: #### M ALBR #### [address] [address] OBSOLETEon 11-24-2020 OBSOLETE Refill (HEMAWS) BANDAR HAUSER ([id number]) 1945 F Date Time Provider Department 11/24/20 SEAN VARNER During your visit today, we recorded the following information about you: Allergies As of Date: 11/24/2020 Noted Allergy Reaction CITRIC ACID 10/18/2007 Comments: Excessive amounts causes blisters Date Reviewed: 03/01/2020 Reviewed by: Sean Varner - Fully Assessed Reason for Visit: Refill Request [94] Order(s):anastrozole (ARIMIDEX) 1 mg tabletTAKE 1 TABLET EVERY DAYDisp: 90 tabletRfl: 3 Prescriptions as of 11/26/2020 - anastrozole (ARIMIDEX) 1 mg tablet TAKE 1 TABLET EVERY DAY - metoprolol succinate ER (TOPROL XL) 100 mg Tb24 Take 100 mg by mouth once daily. - glimepiride (AMARYL) 2 mg tablet Take 2 mg by mouth once daily. - aspirin, enteric coated (ASPIRIN, ENTERIC COATED) 81 mg EC tablet Take 81 mg by mouth once daily. - simvastatin (ZOCOR) 40 mg tablet Take 40 mg by mouth daily at bedtime. 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 Encounter Status:Closed by SEAN VARNER on 11/26/20 Normal [facility] CBCon 04-06-2018 Absolute nRBC <0.01 Normal <0.01 [facility] Comment on above: Performed By: #### P THI, CBC, RFP ####[place] [phone] Erythrocyte distribution width Auto Ratio (RBC) 13.1 % Normal 11.5-15.0 [facility] Comment on above: Performed By: #### P THI, CBC, RFP ####[phone] Hematocrit Auto Volume Fraction (Bld) 42.1 % Normal 36.0-46.0 [facility] Comment on above: Performed By: #### P THI, CBC, RFP ####[phone] Hemoglobin mass conc (Bld) 13.0 g/dL Normal 11.5-15.5 [facility] Comment on above: Performed By: #### P THI, CBC, RFP ####[phone] MCH Auto Entitic mass (RBC) 29.3 pG Normal 26.0-34.0 [facility] Comment on above: Performed By: #### P THI, CBC, RFP ####[place] [phone] MCHC Auto mass conc (RBC) 30.9 g/dL Normal 30.5-36.0 [facility] Comment on above: Performed By: #### P THI, CBC, RFP ####[facility] [id number], [place] [phone] MCV Auto Entitic volume (RBC) 94.8 fL Normal 80.0-100.0 [facility] Comment on above: Performed By: #### P THI, CBC, RFP ####[facility] [id number], [place] [phone] Platelet mean volume Auto Entitic volume (Bld) 11.3 fL Normal 9.0-12.7 [facility] Comment on above: Performed By: #### P THI, CBC, RFP ####[place] [address], [place] [phone] Platelets Auto #/vol (Bld) 310 10*3/uL Normal 150-400 [facility] Comment on above: Performed By: #### P THI, CBC, RFP ####[facility] [id number], [place] [phone] RBC Auto #/vol (Bld) 4.44 10*6/uL Normal 3.90-5.20 [facility] Comment on above: Performed By: #### P THI, CBC, RFP ####[place] [address], [place] [phone] WBC Auto #/vol (Bld) 7.39 10*3/uL Normal 3.70-11.00 [facility] Comment on above: Performed By: #### P THI, CBC, RFP ####[facility] [id number], [place] [phone] PTH, Intacton 04-06-2018 PTH, Intact 67 pg/mL High 15-65 [facility] Comment on above: Performed By: #### P THI, CBC, RFP ####[facility] [id number], [place] [phone] Renal Function Panelon 04-06 Albumin mass conc 4.1 g/dL Normal 3.9-4.9 [facility] Comment on above: Performed By: #### P THI, CBC, RFP ####[facility] [id number] [phone] Anion gap 3 molar conc 13 mmol/L Normal 9-18 [facility] Comment on above: Performed By: #### P THI, CBC, RFP ####[facility] [id number] [phone] Calcium mass conc 9.5 mg/dL Normal 8.5-10.2 [facility] Comment on above: Performed By: #### P THI, CBC, RFP ####[facility] [id number] [phone] Chloride molar conc 108 mmol/L High 97-105 [facility] Reference Lab Comment on above: Performed By: #### P THI, CBC, RFP ####[facility] [address] [phone] CO2 molar conc 21 mmol/L Low 22-30 [facility] Reference Lab Comment on above: Performed By: #### P THI, CBC, RFP ####[facility] [address]mt[address] [place] [phone] Creatinine mass conc 2.00 mg/dL High 0.58-0.96 [facility] Reference Lab Comment on above: Performed By: #### P THI, CBC, RFP ####[facility] [address]wk[address]CKevin [place] [phone] eGFR- Amer. [address] [facility] Reference Lab Comment on above: Performed By: #### P THI, CBC, RFP ####[facility] Kwd[address] [phone] GFR/1.73 sq M predicted among non-blacks MDRD vol rate/area (S/P/Bld) 24 . Normal [facility] Reference Lab Comment on above: Performed By: #### P THI, CBC, RFP ####[facility] Ifr[address], [place] [phone] Glucose mass conc 156 mg/dL High 74-99 [facility] Reference Lab Comment on above: Performed By: #### P THI, CBC, RFP ####[facility] Rfw[address]CPitt[place], [place] [phone] Phosphate mass conc 3.6 mg/dL Normal 2.7-4.8 [facility] Reference Lab Comment on above: Performed By: #### P THI, CBC, RFP ####[facility] Ojc[address]CP[place], [place] [phone] Potassium molar conc 4.9 mmol/L Normal 3.7-5.1 [facility] Reference Lab Comment on above: Performed By: #### P THI, CBC, RFP ####[facility] [address]jz[address]CPitt[place], [place] [phone] Sodium molar conc 142 mmol/L Normal 136-144 [facility] Reference Lab Comment on above: Performed By: #### P THI, CBC, RFP ####[facility] [address]zw[address]CP[place], [place] [phone] Urea nitrogen mass conc 32 mg/dL High 7-21 [facility] Reference Lab Comment on above: Performed By: #### P THI, CBC, RFP ####[facility] Dio[address]CP[place], [place] [phone] PTH, Intacton 11-10-2017 PTH, Intact 83 pg/mL High 15-65 [facility] Reference Lab Comment on above: Performed By: #### C BC, PTHIGAVIN, RFP ####[facility] Ofd[address]CPitt[place], [place] [phone] Protein/Creatinine Ratioon 0 11-10-2017 Creatinine,Urine,Ran 174.3 mg/dL Normal 20-300 [facility] Reference Lab Comment on above: Performed By: #### C BC, PTHI, PRATIO, RFP ####[facility] Jjg[address] AveCKevin Ville [phone] Protein Urine Random 15 mg/dL Normal 0-20 [facility] Reference Lab Comment on above: Performed By: #### C BC, PTHI, PRATIO, RFP ####[facility] Caz[address]CKevin [place] [phone] Protein/Creatinine Ratio 0.1 Normal <0.2 [facility] Reference Lab Comment on above: Performed By: #### C BC, PTHI, PRATIO, RFP ####[facility] Qqm[address] AveCKevin [place] [phone] Renal Function Panelon 11-10 Albumin mass conc 4.1 g/dL Normal 3.9-4.9 [facility] Reference Lab Comment on above: Performed By: #### C BC, PTHI, PRATIO, RFP ####[facility] Ubv[address]CKevin [place] [phone] Anion gap 3 molar conc 11 mmol/L Normal 9-18 [facility] Reference Lab Comment on above: Performed By: #### C BC, PTHI, PRATIO, RFP ####[facility] Zxp[address]CKevin [place] [phone] Calcium mass conc 9.5 mg/dL Normal 8.5-10.2 [facility] Reference Lab Comment on above: Performed By: #### C BC, PTHI, PRATIO, RFP ####[facility] Zjq[address]CKevin [place] [phone] Chloride molar conc 107 mmol/L High 97-105 [facility] Reference Lab Comment on above: Performed By: #### C BC, PTHI, PRATIO, RFP ####[facility] Isx[address]CKevin [place] [phone] CO2 molar conc 24 mmol/L Normal 22-30 [facility] Reference Lab Comment on above: Performed By: #### C WESTON PTHGAVIN Melton, RFP ####[facility] Llm[address]CPitt[place], [place] [phone] Creatinine mass conc 2.04 mg/dL High 0.58-0.96 [facility] Reference Lab Comment on above: Performed By: #### C WESTON PTHGAVIN Melton, RFP ####[facility] [address] [place] [phone] eGFR- Amer. [address] [facility] Reference Lab Comment on above: Performed By: #### C WESTON PTHGAVIN Melton, RFP ####[facility] [place] [phone] GFR/1.73 sq M predicted among non-blacks MDRD vol rate/area (S/P/Bld) 24 . Normal [facility] Reference Lab Comment on above: Performed By: #### C SHABNAM ONTIVEROS PRATIO, RFP ####[place] [address] [place], [place] [phone] Glucose mass conc 133 mg/dL High 74-99 [facility] Reference Lab Comment on above: Performed By: #### C WESTON PTHGAVIN Melton, RFP ####[facility] Oqq[address] AvAs[place], [place] [phone] Phosphate mass conc 3.3 mg/dL Normal 2.7-4.8 [facility] Reference Lab Comment on above: Performed By: #### C BC PTHGAVIN Melton, RFP ####[facility] [address]iv[address] AvAs[place], [place] [phone] Potassium molar conc 4.5 mmol/L Normal 3.7-5.1 [facility] Reference Lab Comment on above: Performed By: #### C BC, PTHI, PRATIO, RFP ####[facility] Yop[address]CKevin [place] [phone] Sodium molar conc 142 mmol/L Normal 136-144 [facility] Reference Lab Comment on above: Performed By: #### C BC, PTHI, PRATIO, RFP ####[facility] Ksh[address] AveCKevin [place] [phone] Urea nitrogen mass conc 27 mg/dL High 7-21 [facility] Reference Lab Comment on above: Performed By: #### C BC PTHI PRATIO, RFP ####[facility] Tfh[address]CKevin [place] [phone] CBCon 11-09-2017 Absolute nRBC <0.01 Normal <0.01 [facility] Reference Lab Comment on above: Performed By: #### C BC PTHI, PRATIO, RFP ####[facility] Wxl[address]CKevin [place] [phone] Erythrocyte distribution width Auto Ratio (RBC) 13.1 % Normal 11.5-15.0 [facility] Reference Lab Comment on above: Performed By: #### C BC, PTHI, PRATIO, RFP ####[facility] Gae[address] AveCKevin [place] [phone] Hematocrit Auto Volume Fraction (Bld) 38.7 % Normal 36.0-46.0 [facility] Reference Lab Comment on above: Performed By: #### C BC, PTHI, PRATIO, RFP ####[facility] Hzx[address] AveCKevin [place] [phone] Hemoglobin mass conc (Bld) 12.4 g/dL Normal 11.5-15.5 [facility] Reference Lab Comment on above: Performed By: #### C BC, PTHI, PRATIO, RFP ####[facility] Aky[address] AveClevelBrent Ville [phone] MCH Auto Entitic mass (RBC) 29.5 pG Normal 26.0-34.0 [facility] Reference Lab Comment on above: Performed By: #### C SHABNAM ONTIVEROS PRATIO, RFP ####[facility] Jwm[address] AveClevelGarden [place], [place] [phone] MCHC Auto mass conc (RBC) 32.0 g/dL Normal 30.5-36.0 [facility] Reference Lab Comment on above: Performed By: #### C SHABNAM ONTIVEROS PRATIO, RFP ####[facility] Tik[address] AveCPitt[place], [place] [phone] MCV Auto Entitic volume (RBC) 92.1 fL Normal 80.0-100.0 [facility] Reference Lab Comment on above: Performed By: #### C SHABNAM ONTIVEROS PRATIO, RFP ####[facility] Llb[address] AveCPitt[place], [place] [phone] Platelet mean volume Auto Entitic volume (Bld) 11.5 fL Normal 9.0-12.7 [facility] Reference Lab Comment on above: Performed By: #### C SHABNAM ONTIVEROS PRATIO, RFP ####[facility] Jru[address] AveCPitt[place], [place] [phone] Platelets Auto #/vol (Bld) 299 10*3/uL Normal 150-400 [facility] Reference Lab Comment on above: Performed By: #### SHABNAM MASSEY PRATIO, RFP ####[facility] Yhi[address] AveCPitt[place], [place] [phone] RBC Auto #/vol (Bld) 4.20 10*6/uL Normal 3.90-5.20 [facility] Reference Lab Comment on above: Performed By: #### C SHABNAM ONTIVEROS PRATIO, RFP ####[facility] [address]bq[address]CPitt[place], [place] [phone] WBC Auto #/vol (Bld) 7.36 10*3/uL Normal 3.70-11.00 [facility] Reference Lab Comment on above: Performed By: #### C BC, PTHIGAVIN, RFP ####[facility] Ssh[address] AveCKevin [place] [phone] Renal Function Panelon 05-08 Albumin mass conc 4.3 g/dL Normal 3.9-4.9 [facility] Reference Lab Comment on above: Performed By: #### R FP ####[facility] Uxx[address] AveCKevin [place] [phone] Anion gap 3 molar conc 13 mmol/L Normal 9-18 [facility] Reference Lab Comment on above: Performed By: #### R FP ####[facility] Ooh[address] AveCKevin [place] [phone] Calcium mass conc 9.4 mg/dL Normal 8.5-10.2 [facility] Reference Lab Comment on above: Performed By: #### R FP ####[facility] Vww[address] AveCKevin [place] [phone] Chloride molar conc 104 mmol/L Normal 97-105 [facility] Reference Lab Comment on above: Performed By: #### R FP ####[facility] Hmk[address] AveCKevin [place] [phone] CO2 molar conc 24 mmol/L Normal 22-30 [facility] Reference Lab Comment on above: Performed By: #### R FP ####[facility] Tgw[address] AveCKevin [place] [phone] Creatinine mass conc 2.34 mg/dL High 0.58-0.96 [facility] Reference Lab Comment on above: Performed By: #### R FP ####[facility] Bru[address] AveCKevin [place] [phone] eGFR- Amer. [address] [facility] Reference Lab Comment on above: Performed By: #### R FP ####[facility] Onr[address] [place], [place] [phone] GFR/1.73 sq M predicted among non-blacks MDRD vol rate/area (S/P/Bld) 20 . Normal [facility] Reference Lab Comment on above: Performed By: #### R FP ####[facility] [address] [place], [place] [phone] Glucose mass conc 242 mg/dL High 74-99 [facility] Reference Lab Comment on above: Performed By: #### R FP ####[place] [phone] Phosphate mass conc 3.2 mg/dL Normal 2.7-4.8 [facility] Reference Lab Comment on above: Performed By: #### R FP ####[place] [phone] Potassium molar conc 4.4 mmol/L Normal 3.7-5.1 [facility] Reference Lab Comment on above: Performed By: #### R FP ####[place] [phone] Sodium molar conc 141 mmol/L Normal 136-144 [facility] Reference Lab Comment on above: Performed By: #### R FP ####[facility] [address] [place] [address] [phone] Urea nitrogen mass conc 31 mg/dL High 7-21 [facility] Reference Lab Comment on above: Performed By: #### R FP ####[address] [phone] Office Visit: annualon 02-02 Documentation of current medications (procedure) Done Invalid Interpretation Code [facility] Fall risk assessment No Invalid Interpretation Code [facility] Tobacco smoking status NHIS Never Invalid Interpretation Code [facility] Tobacco use CPHS Never smoker Invalid Interpretation Code [facility] Office Visit: annualon 01-18 Colonoscopy (procedure) Colonoscopy (procedure) Invalid Interpretation Code [facility] Breast Mammogram screening Normal Invalid Interpretation Code [facility] Vital Signs Date Time Vital Sign Value Performing Clinician Darryl ribeiro 02-02-2017 08:30-0400 BMI (Body Mass Index) 1.21 kg/m2 Neyda Evans MD [facility] 02-02-2017 08:30-0400 Body Temperature 96.2 [degF] Neyda Evans MD [facility] 02-02-2017 08:30-0400 BP Diastolic 85 mm[Hg] Neyda Evans MD [facility] 02-02-2017 08:30-0400 BP Systolic 149 mm[Hg] Neyda Evans MD [facility] 02-02-2017 08:30-0400 Height 489.71 cm Neyda Evans MD [facility] 02-02-2017 08:30-0400 Pulse (Heart Rate) 70 /min Neyda Evans MD [facility] 02-02-2017 08:30-0400 Weight 29.03 kg Neyda Evans MD [facility] Encounters Encounter Date Encounter Type Care Provider Facility Start: 02-17-2025 ambulatory Torrey Nicolas Facility:[facility] Start: 12-21-2024 End: 12-21-[address] Talisha Andrade DO Work Phone: -Laboratory Start: 12-21-2024 End: 12-21-[address] Talisha Andrade DO -Laboratory Work Phone: Start: 12-21-2024 End: 12-21-2024 ambulatory Talisha Andrade Facility:[facility] [place] Start: 03-28-2024 End: 03-28-2024 ambulatory Vale Randall Facility:[facility] [place] Start: 03-15-2024 Encounter for gynecological examination (general) (routine) with abnormal findings Vale [facility] Start: 03-15-2024 End: 03-15-2024 ambulatory Melchor Teransay Facility[facility] Start: 12-30-2022 End: 12-30-2022 ambulatory [facility] Work Phone: Start: 12-30-2022 End: 12-30-2022 Patient encounter procedure [facility] [place]-Laboratory Work Phone: Start: 02-07-2022 Refill Sean mcadams APRN.UKE OPERATOR Work Phone: Hematology/Oncology Comment on above: Refill Request Start: 12-12-2021 End: 12-12-2021 Patient encounter procedure MELCHOR ALBA DO [facility] Lab Procedures Date Procedure Procedure Detail Performing Clinician Start: 12-21-[address] Talisha Andrade DO Work Phone: Start: 12-21-2024 Serum inorganic phos phate measurement Dr. Talisha Andrade DO Work Phone: Start: 02-02-2017 End: 02-02-2017 Pelvic & Breast Exam (Medicare) Vale Miranda EXTRUSION PRESS OPERATOR Work Phone: Start: 04-20-2001 Cholecystectomy MELCHOR WATTY DO Start: Excision of breast tissue MELCHOR ALBA Comment on above: subtotal; left Plan of Treatment Date Care Activity Detail Author Start: 12-13-2022 DIABETES SCREEN DIABETES SCREEN [facility] Start: 12-19-2021 Influenza vaccination INFLUENZA (#1) [facility] Start: 11-22-2021 COVID-19 VACCINE (5 - Booster for Moderna series) COVID-19 VACCINE (5 - Booster for Moderna series) [facility] Start: 04-20-2021 ADVANCE DIRECTIVE DISCUSSION ADVANCE DIRECTIVE DISCUSSION [facility] Start: 04-20-2021 DEPRESSION ASSESSMENT DEPRESSION ASSESSMENT [facility] Start: 02-02-2017 End: 02-02-2017 Dxa bone density study 1/> sites axial [facility] Dual-energy X-ray absorptiometry (DXA), bone density study, 1 or more sites; [facility] Start: 02-02-2017 End: 02-02-2017 Mammogram, screening Mammogram, Screening, both breasts [facility] Start: 03-28-2015 PNEUMOCOCCAL: 65+ (2 - PCV) PNEUMOCOCCAL: 65+ (2 - PCV) [facility] Start: 1994 SHINGRIX VACCINE (1 of 2) SHINGRIX VACCINE (1 of 2) [facility] Start: 11-13-1963 Urine microalbumin profile DTAP,TDAP,TD (1 - Tdap) [facility] Start: 1962 HEPATITIS C SCREENING HEPATITIS C SCREENING [facility] Immunizations Immunization Date Immunization Notes Care Provider Jovanny ellison 09-27-2021 COVID-19, mRNA, LNP- S, PF, 100 mcg or 50 mcg dose; Translations: [Moderna COVID-19 Vaccine] MELCHOR WILLIS DO [facility] 02-19-2021 SARS-CoV-2 (COVID-19 ) mRNA-1273 vaccine MELCHOR WILLIS DO [facility] 06-12-2020 COVID-19, mRNA, LNP- S, PF, 100 mcg or 50 mcg dose; Translations: [Moderna COVID-19 Vaccine] MELCHOR WILLIS DO [facility] 05-16-2020 SARS-CoV-2 (COVID-19 ) mRNA-1273 vaccine MELCHOR WILLIS DO [facility] 02-02-2020 influenza virus vacc ine, unspecified formulation MELCHOR WILLIS DO [facility] 02-02-2020 influenza, high-dose , quadrivalent vaccine (FLUZONE HIGH DOSE QUADRIVALENT) Sean Varner APRN.UKE OPERATOR Work Phone: [facility] 03-28-2014 pneumococcal polysaccharide vaccine, 23 valent MELCHOR WILLIS DO [facility] Payers Date Payer Category Payer Self-pay [id number] 2013 Medicare [id number] 2013 Medicare HUMANA MEDICARE HUMANA MEDICARE PPO [id number] 2013-Present [phone] [address] [address] [place] [address] PPO [id number] Unknown [id number] Unknown [id number] Unknown [id number] Unknown [id number] Social History Date Type Detail Facility Start: 05-10-2019 End: 03-11-2023 Tobacco smoking status Never smoked tobacco (finding) [facility] Sex Assigned At Sex [facility] Start: 12-31-2011 Tobacco use and exposure Smokeless tobacco non-user [facility] Start: 03-01-2020 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 alcohol (finding) [facility] Start: 1945 Sex Assigned At Not on file C [facility] Start: 03-10-2022 [facility] [place] Start: 1945 Sex Assigned At Female [facility] [place] [facility] Sex Female [facility] Medical Equipment Procedure Code Equipment Code Equipment Origin al Text Equipment Identifier Dates See Instructions , Dispense True Metrix test strips, #100, UAD daily to test BS, # 100 EA, 3 Refill(s), Pharmacy: [facility], Diabetes mellitus Start: 05-13-2019 See Instructions , Dispense Trueplus 33 ga. lancets, #100, UAD daily to check BS, # 100 EA, 3 Refill(s), [facility]acy[facility], Diabetes mellitus, 163, cm, 06/15/19 9:20:00 EST, Height, 88.6, kg, 06/15/19 9:20:00 EST, Dosing Weight Start: 06-15-2019 Note 02-07-2022 Telephone Encounter - Neelam Wilhelm LPN - 02/07/2022 3:04 PM EDTTelephone Encounter - Sean Varner APRN.AMIRAH - 02/07/2022 2:58 PM EDT Note Date & Type Note Facility 02-07-2022 Miscellaneous Notes Formattin g of this note might be different from the original. Spoke with pt. ,informed she can discontinue the Arimidex as she has been on it for 7 1/2 years. She also can F/U with PCP or TAPE FASTENER MACHINE OPERATOR. Pt. States she has mamm 03/10 @ [facility] and follow up appt. With her TAPE FASTENER MACHINE OPERATOR. Neelam Wilhelm LPN Pt. has completed over 7 1/2 years of therapy. She can discontinue arimidex. Also, pt. has not been seen here since 2019. She can follow up with PCP or TAPE FASTENER MACHINE OPERATOR for yearly CBE/mammogram. TAPE FASTENER MACHINE OPERATOR ordered her last mammogram that I can see in our system. documented in this encounter [facility] History of Past illness Narrative 06-01-2014 Note Date & Type Note Facility 06-01-2014 History of Past i llness Narrative Problem Noted Date Resolved Date Encounter for antineoplastic chemotherapy 201406/28/2014 Drug induced neutropenia(288.03) 04/19/2014 06/28/2014 Special screening for malignant neoplasms, colon 03/26/2010 01/28/2016 documented as of this encounter (statuses as of 02/07/2022) [facility] Evaluation + Plan note Note Date & Type Note Facility Evaluation + Plan note Future Appointments Appointment Date:06/26/2022 09:00:00 AM Scheduled Provider:MELCHOR WILLIS DO Location:[facility] Appointment Type:[facility] Evaluation note Note Date & Type Note Facility Evaluation note No assessment information availa ble [facility] Work Phone: Hospital course Narrative Note Date & Type Note Facility Hospital course Narrative No data available for this section [facility] Hospital Discharge instructions Note Date & Type Note Facility Hospital Discharge instructions No data available for this section [facility] Progress note Note Date & Type Note Facility Progress note No data available for this section [facility] Reason for referral (narrative) Note Date & Type Note Facility Reason for referral (narrative) No reason for referral information available [facility] Work Phone: Summary Purpose Family History No Family History Records FoundNo Family History Records FoundNo Family History Records FoundNo Family History Records Found Advance Directives No Advanced Directives Records Found Advance Directive Response Recorded Date/ Time Advance Directives No August 14 11:58am Living Will Yes August 14, 2021 11:58am Power of Animal Ecologist Yes August 14 11:58am Advance Directive Response Recorded Date/ Time Living Will Yes August 14, 2021 11:58am Do you have a Healthcare Power of Animal Ecologist? Yes August 14, 2021 11:58am Advance Directives No August 14 11:58am Chief Complaint and Reason for Visit Chief Complaint [address] Additional Source Comments INFORMATION SOURCE (unrecogn ized section and content) DATE CREATED AUTHOR 04/09/2018 [facility] DATE CREATED AUTHOR AUTHOR'S ORGANIZ ATION 10/14/2021 [facility] DATE CREATED AUTHOR AUTHOR'S ORGANIZ ATION 12/14/2021 [facility] ([place]) DATE CREATED AUTHOR AUTHOR'S ORGANIZ ATION 02/19/2025 [facility] Care Team (unrecognized sect ion and content) Care Team Personnel Name: MELCHOR WILLIS DO Position: P4 Physician - Primary Care Member Role: Primary Care Physician Address: Address: [address] [place] [address]- [place] Care Team Related Persons Name: LAW HAUSER Source Comments (unrecognize d section and content) In the event this informatio n is protected by the Federal Confidentiality of Alcohol and Drug Abuse Patient Records regulations: The Federal rules restrict any use of the information to criminally investigate or prosecute any alcohol or drug abuse patient.[facility] Reason for Visit (unrecogniz ed section and content) Reason Comments Refill Request Care Teams (unrecognized sec tion and content) Library Consultant Relationship Specialty Start Date End Date Melchor Willis PCP - General Family Medicine 02/21/13 Team Status: Active Member Role Status Dates Dr. Melchor Willis DO Family Provider Active Dr. Melchor Willis DO Primary Care Provider Active Team Status: Inactive Member Role Status Dates Dr. Melchor Willis DO Primary Care Provider Active Dr. Talisha Andrade DO Attending Provider, Referring Angelic hoffmann Active Team Status: Active Member Role/Relationship Status Dates Torrey Nicolas MD Primary care physician Active Team Status: Inactive Member Role/Relationship Status Dates Dr. Talisha Andrade DO Attending physician Active Start: December 21, 2024 End: December 21, 2024 Dr. Talisha Andrade DO Referring Provider Active Start: December 21, 2024 End: December 21, 2024 Torrey Nicolas MD Primary care physician Active S tart: December 21, 2024 End: December 21, 2024 Goals (unrecognized section and content) Goals may be documented in a n alternate section FOR RECORDS PERTAINING TO PATIENTS WHO ARE OR HAVE BEEN ENROLLED IN A CHEMICAL DEPENDENCY/SUBSTANCEABUSE PROGRAM, SOME INFORMATION MAY BE OMITTED. This clinical summary was aggregated from multiple sources. Caution should be exercised in using it in the provision of clinical care. This summary normalizes information from multiple sources, and as a consequence, information in this document may materially change the coding, format and clinical context of patient data. In addition, data may be omitted in some cases. CLINICAL DECISIONS SHOULD BE BASED ON THE PRIMARY CLINICAL RECORDS. [facility] provides no warranty or guarantee of the accuracy or completeness of information in this document.
== END | disposition home or self-care (01) ==
LOC: OPBI 09:46
PROVIDERS: PCP Family Medicine; Referring Provider Family Medicine; Visit Provider Family Medicine
DX: Z12.31 Encounter for screening mammogram for malignant neoplasm of breast (principal); Z85.3 Personal history of malignant neoplasm of breast; Z80.3 Family history of malignant neoplasm of breast; Z90.12 Acquired absence of left breast and nipple
CPT/HCPCS: 77063; 77067